=== PATIENT | female | born 1985 | race African-American/Black ===

== ENCOUNTER 2016-04-03 17:31 | Emergency (ER) | payer SELFPAY ==
[2016-04-03 17:32] VITALS: BMI 31.6
[2016-04-03 17:40] VITALS: BP 160/53; PULSE 77; TEMP 98
[2016-04-03] MEDS ORDERED: PROPARACAINE 0.5% OPHTH SOLN 15 ML BOTTLE OP ONE (17:53)
[2016-04-03] MEDS ORDERED: FLUORESCEIN SODIUM 1 MG APP OP ONE (17:53)
--- NOTE | 2016-04-03 17:55 | EDPRACDOC ---
- General Information Stated Complaint: RT EYE DRAINAGE YELLOW SWOLLEN NO INJURY Time Seen by Provider: 04/03/16 17:49 Information Source: Patient Mode Of Arrival: Car Home Medications: Home Medications Alprazolam 0.25 mg PO BID PRN 10/07/12 Hydrocodone Bit/Acetaminophen [Hydrocodon-Acetaminophen 5-325] 1 tab PO BID PRN 10/07/12 Cyclobenzaprine HCl [Flexeril] 10 mg PO TID #20 tablet 10/24/14 Hydrocodone Bit/Acetaminophen [Hydrocodon-Acetaminophen 5-325] 1 tab PO Q6H PRN #14 tab 10/24/14 Norgestimate-Ethinyl Estradiol [Ortho Tri-Cyclen] 1 each PO DAILY 10/24/14 Wellbutrin Unknown Dose 0 mg PO DAILY 10/24/14 Amox Tr/Potassium Clavulanate [Augmentin Tablet (875mg/125mg)] 1 tab PO BID #20 tablet 04/03/16 Polymyxin B Sulfate/Tmp [Polytrim Eye Drops] 2 drops OP Q4H #10 ml 04/03/16 Allergies/Adverse Reactions: Allergies Allergy/AdvReac Type Severity Reaction Status Date / Time No Known Allergies Allergy Verified 04/03/16 17:58 - History of Present Illness Onset: 2 days HPI: Pt c/o R upper lid swelling redness, discharge x 2 days. C/o congestion. Denies fever, earache, sore throat, cough. Denies contact use or injury. Eye Symptoms: Reports: Discomfort, Discharge, Redness Symptoms: Mild Relevent History: Reports: None Cough: Denies: Non-productive, NO, Productive, Clear, Bloody, Brown, Green, White, Yellow, T, BK, HK, CO, S, WK, O Rhinorrhea: Reports: Clear Associated Signs and Symptoms:: Reports: None ED Past Medical History - History Reviewed Yes Nurses notes reviewed and agree except as marked - Patient Medical History GI/ History: Denies: Urinary Tract Infection Additional Past Medical History: CHRONIC PAIN TO RIGHT ANKLE FROM PRIOR FX Surgical History: Reports: Other (ANKLE SURGERY) - Social Medical History Smoking Status: Heavy tobacco smoker (5 or more cigarettes/day or daily pipe/ cigar) Social History: Reports: Marijuana Use ETOH: Social Substance Abuse: Illicit Drugs EDM Review of Systems - Review of Systems Constitutional: No Symptoms Reported. negative: Fever, Chills, Weakness, Fatigue, Loss of Appetite Eyes: Discharge, Pain, Redness Ears: No Symptoms Reported. negative: Pain, Hearing Loss, Drainage, Ear Pulling Throat: No Symptoms Reported. negative: Pain, Swelling Nose: No Symptoms Reported. negative: Congestion, Bleeding, Discharge, Injection, Swelling, Deformity, Ecchymosis, Tender, Abrasion, Laceration Mouth: No Symptoms Reported. negative: Pain, Drooling Respiratory: No Symptoms Reported. negative: Cough, Brassy Cough, Barky Cough, Shortness of Breath, Wheezing, Hemoptysis Integumentary: No Symptoms Reported. negative: Itching, Rash, Bruising, Wound Allergic/Immunologic: No Symptoms Reported. negative: Hives, Itching Hematologic: No Symptoms Reported. negative: Lymphadenopathy, Easy Bruising, Easy Bleeding Psychiatric: No Symptoms Reported. negative: Anxiety, Depression, Hallucinations, Insomnia, Suicidal - Physical Exam Constitutional: Alert (Awake) Oriented to: Time, Person, Place Last recorded Vital Signs: Last Vital Signs Temp 98.0 F 04/03/16 17:39 Pulse 77 04/03/16 17:39 Resp 18 04/03/16 17:39 BP 160/53 L 04/03/16 17:39 Pulse Ox 97 04/03/16 17:39 Oxygen Pulse Oxygen Saturation 97 O2 Device Room Air Oxygen Flow Rate Fraction of Inspired Oxygen ( FIO2) - HEENT Head: Normal ( normocephalic) Eye Exam: Conjunctival Injection, Edema Oropharynx: Normal (Pharynx:Moist without exudate,Gums-no swelling) Tympanic Membrane: Normal ENT EAC: Normal TMJ: Normal Nose: No Symptoms Reported (septum midline) Neck: Normal (FROM, trachea at midline) - Respiratory/Cardiovascular Respiratory: Normal - CTA (BBS clear to auscultation without adventitious sounds ) Cardiovascular: Normal (RRR without murmur, gallop or rub) - Integumentary Skin: Normal, Warm, Dry Lymphatics: Normal (no adenopathy) - Neurologic Memory Impaired: Normal Motor Function: Normal (Normal tone, Pulses 2+ No cyanosis or edema, FROM) Mood Description: Normal Perception: Normal ED Eye Problem Exam Eye Exam: right eye: conjunctival inflammation, eyelid inflammation (upper swelling, erythema), left eye: normal inspection, bilateral eye: PERRL, EOMI Sclera: Clear/Quiescent Eye Discharge: Yellow Comment: no abrasions or ulceration on fluorescein, no FB on lid inversion. - Differential Diagnosis Bacterial Conjunctivitis, Corneal Abrasion, Hordeolum (sty) Decision Time to Discharge: 18:10 - Departure Disposition: Home Condition: Stable Final Diagnosis: Conjunctivitis Instructions: Conjunctivitis (ED) Education/Counseling Given To: Patient Education/Counseling Given Regarding: Diagnosis, Treatment, Follow Up Referrals: None,No Provider [Primary Care Provider] - One Week Aron Iqbal MD [Staff Physician] - One Week Prescriptions: New Amox Tr/Potassium Clavulanate [Augmentin Tablet (875mg/125mg)] 1 tab PO BID # 20 tablet Polymyxin B Sulfate/Tmp [Polytrim Eye Drops] 2 drops OP Q4H #10 ml No Action Hydrocodone Bit/Acetaminophen [Hydrocodon-Acetaminophen 5-325] 1 tab PO BID PRN PRN Reason: Pain Alprazolam 0.25 mg PO BID PRN PRN Reason: Anxiety Wellbutrin Unknown Dose 0 mg PO DAILY Norgestimate-Ethinyl Estradiol [Ortho Tri-Cyclen] 1 each PO DAILY Cyclobenzaprine HCl [Flexeril] 10 mg PO TID #20 tablet Hydrocodone Bit/Acetaminophen [Hydrocodon-Acetaminophen 5-325] 1 tab PO Q6H PRN #14 tab PRN Reason: Pain Additional Instructions: Follow up with [facility] in 1-2 days. Return or worse or different symptoms.
== END 2016-04-03 18:24 | disposition home or self-care (01) ==
LOC: ED 17:31 → EDMC 18:24
DX: H10.9 Unspecified conjunctivitis (principal)
CPT/HCPCS: 99283; J3490